=== PATIENT | female | born 1965 | race Caucasian/White ===

== ENCOUNTER 2017-02-28 21:58 | Emergency (ER) | payer OTHER ==
[~2017-02-28] VITALS: Ht 152.4 cm; Wt 60.1 kg
[2017-02-28 22:03] VITALS: BP 150/103; PULSE 65; RESP 18; TEMP 97.5; O2SAT 97
[2017-02-28] MEDS ORDERED: LIDOCAINE HCL 1% 50 ML VIAL INFIL ONE (22:15)
[2017-02-28] MEDS ORDERED: BUPIVACAINE HCL PF 0.5% 10 ML VIAL INFIL ONE (22:15)
[2017-02-28] MEDS ORDERED: TETANUS/DIPHTHERIA TOXOID ADULT 0.5 ML VIAL IM ONE (22:15)
--- NOTE | 2017-02-28 22:53 | PD ---
HPI Chief Complaint: Laceration/Skin Injury Time Seen by Provider: 22:25 Travel History International Travel<30 days: No Contact w/Intl Traveler<30days: No Traveled to known affect area: No History of Present Illness HPI 51-year-old female presents to the emergency room for evaluation of a laceration to her left thumb that occurred just prior to arrival. Patient cut herself with a sharp knife accidentally. She ran the cut under water and then apply pressure. It was bleeding a moderate amount. She denies being on blood thinners. Patient denies significant pain or paresthesias. Denies loss of range of motion. Last tetanus vaccination was greater than 5 years ago. PFSH Past Medical History Heart Rhythm Problems: Yes Tetanus Vaccination: > 5 Years Influenza Vaccination: No ?: Not Past Surgical History Appendectomy: Yes Social History Alcohol Use: Yes (occ) Tobacco Use: No Allergies-Medications (Allergen,Severity, Reaction): Coded Allergies: No Known Allergies (Unverified , 02/28/17) Reported Meds & Prescriptions Reported Meds & Active Scripts Active No Active Prescriptions or Reported Medications Review of Systems Except as stated in HPI: all other systems reviewed are Neg Physical Exam Narrative GENERAL: Well-nourished, well-developed female in no acute distress. Afebrile. Ambulatory. SKIN: Focused skin assessment warm/dry. There is a 2 cm approximated, L-shaped laceration to the distal left thumb. Bleeding moderately. No neurovascular or tendon injury. HEAD: Normocephalic. EYES: No scleral icterus. No injection or drainage. NECK: Supple, trachea midline. No JVD or lymphadenopathy. CARDIOVASCULAR: Regular rate and rhythm without murmurs, gallops, or rubs. RESPIRATORY: Breath sounds equal bilaterally. No accessory muscle use. EXTREMITY: Full range of motion of left thumb. And 2 second capillary refill distally. Data Data Last Documented VS Vital Signs Date Time Temp Pulse Resp B/P Pulse Ox O2 Delivery O2 Flow Rate FiO2 02/28/17 22:03 97.5 65 18 150/103 97 Orders Bupivacaine Pf 0.5% Inj (Marcaine Pf 0.5 (02/28/17 22:15) Lidocaine 1% Inj (50 Ml) (Xylocaine 1% I (02/28/17 22:15) Tetanus/Diphtheria Tox Adult (Tetanus/Di (6/19/17 22:15) MDM Medical Decision Making Medical Screen Exam Complete: Yes Emergency Medical Condition: Yes Medical Record Reviewed: Yes Differential Diagnosis Laceration, abrasion, contusion, skin tear Narrative Course 51-year-old female presents to the emergency room for evaluation of laceration to the left thumb that occurred earlier today. Patient cut herself with a knife. Tetanus was updated. Left thumb is neurovascularly intact. No tendon or neurovascular injury. Less than 2 second capillary refill distally. Laceration was repaired, see procedure for details. Patient discharged with wound care instructions and told to follow-up with a primary care physician or return for worsening symptoms. She understands and agrees to plan. Procedures Procedure Narrative LACERATION LOCATION: Left distal thumb LENGTH: 2 cm NUMBER OF STITCHES/ASHANTI: 5 simple interrupted REPAIR: The area of the laceration was prepped with Betadine and sterilely draped. The laceration was infiltrated with lidocaine with epinephrine. The wound was copiously irrigated and explored without evidence of foreign body, tendon injury or neurovascular injury. The wound was closed using 5-0 Prolene. This was a single layer repair. A sterile dressing was applied. The patient was advised to keep the dressing clean and dry. Patient tolerated the procedure well. Diagnosis Primary Impression: Laceration of left thumb Qualified Code: S61.012A - Laceration of left thumb without foreign body without damage to nail, initial encounter Referrals: Primary Care Physician Patient Instructions: Finger Laceration (ED), General Instructions Additional Instructions: Rest and drink plenty of fluids. Keep wound clean and dry. Apply triple antibiotic ointment daily. Sutures out in 7-10 days. Follow-up with a primary care physician. Return to the emergency room for worsening symptoms. Scripts No Active Prescriptions or Reported Meds Disposition: 01 DISCHARGE HOME Condition: Stable Amara Sofia Feb 28, 2017 22:53
== END 2017-02-28 23:11 | disposition home or self-care (01) ==
LOC: PHEFT 21:58
DX: S61.012A Laceration without foreign body of left thumb without damage to nail, initial encounter (principal); Z23 Encounter for immunization; W26.0XXA Contact with knife, initial encounter; Y93.9 Activity, unspecified; Y92.9 Unspecified place or not applicable; Y99.8 Other external cause status
CPT/HCPCS: 12001; 90471; 90714